=== PATIENT | female | born 1995 | race American Indian/Alaskan Native ===

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

== ENCOUNTER 2020-05-21 16:23 | Emergency (ER) | payer OTHER ==
[2020-05-21 16:49] VITALS: BP 140/51
--- NOTE | 2020-05-21 18:12 | Emergency Department Report ---
- General Chief complaint: Skin/Abscess/Foreign Body Stated complaint: BOIL ON RIGHT LEG Time Seen by Provider: 05/21/20 18:08 Source: patient Mode of arrival: Ambulatory Limitations: No Limitations - History of Present Illness Initial comments: Patient is a 25-year-old female who presents emergency room with complaints of a possible boil to the right lower leg that began 5 days ago. She denies any abrasion, hitting her leg against anything, any bites, any recent shaving. She denies any drainage, fever, vomiting, diarrhea. Patient denies any past medical history. No allergies to medications. Last menstrual cycle April 30, 2020. She denies any possibility of . - Related Data Previous Rx's Medication Instructions Recorded Last Taken Type Diphenhydramine HCl [Benadryl 25 mg PO QID PRN #40 tablet 07/23/15 Unknown Rx Allergy TAB] Famotidine [Pepcid] 10 mg PO BID #30 tablet 07/23/15 Unknown Rx Doxycycline Monohydrate 100 mg PO BID #20 capsule 08/04/16 Unknown Rx [Doxycycline Monohydrate CAP] Fluconazole (Nf) [Diflucan TAB] 150 mg PO ONCE #1 tablet 08/04/16 Unknown Rx metroNIDAZOLE [Flagyl] 2 g PO ONCE #4 tablet 09/08/16 Unknown Rx metroNIDAZOLE [Flagyl TAB] 500 mg PO Q12HR #14 tab 09/17/16 Unknown Rx Ciprofloxacin HCl [Ciprofloxacin 500 mg PO Q12HR #10 tab 12/16/16 Unknown Rx TAB] Sulfamethoxazole/Trimethoprim 1 each PO BID 7 Days #14 tablet 05/21/20 Unknown Rx [Bactrim DS TAB] Allergies Allergy/AdvReac Type Severity Reaction Status Date / Time No Known Allergies Allergy Verified 05/21/20 16:46 Abscess Boil HPI - HPI Chief Complaint: Skin/Abscess/Foreign Body Stated Complaint: BOIL ON RIGHT LEG Time Seen by Provider: 05/21/20 18:08 Home Medications: Previous Rx's Medication Instructions Recorded Last Taken Type Diphenhydramine HCl [Benadryl 25 mg PO QID PRN #40 tablet 07/23/15 Unknown Rx Allergy TAB] Famotidine [Pepcid] 10 mg PO BID #30 tablet 07/23/15 Unknown Rx Doxycycline Monohydrate 100 mg PO BID #20 capsule 08/04/16 Unknown Rx [Doxycycline Monohydrate CAP] Fluconazole (Nf) [Diflucan TAB] 150 mg PO ONCE #1 tablet 08/04/16 Unknown Rx metroNIDAZOLE [Flagyl] 2 g PO ONCE #4 tablet 09/08/16 Unknown Rx metroNIDAZOLE [Flagyl TAB] 500 mg PO Q12HR #14 tab 09/17/16 Unknown Rx Ciprofloxacin HCl [Ciprofloxacin 500 mg PO Q12HR #10 tab 12/16/16 Unknown Rx TAB] Sulfamethoxazole/Trimethoprim 1 each PO BID 7 Days #14 tablet 05/21/20 Unknown Rx [Bactrim DS TAB] Allergies/Adverse Reactions: Allergies Allergy/AdvReac Type Severity Reaction Status Date / Time No Known Allergies Allergy Verified 05/21/20 16:46 ED Review of Systems ROS: Stated complaint: BOIL ON RIGHT LEG Other details as noted in HPI Comment: All other systems reviewed and negative ED Past Medical Hx - Past Medical History Previous Medical History?: Yes Additional medical history: Eczema. Contact dermatitis with certain makeup - Surgical History Past Surgical History?: No - Social History Smoking Status: Never Smoker Substance Use Type: None - Medications Home Medications: Home Medications Medication Instructions Recorded Confirmed Last Taken Type Diphenhydramine HCl [Benadryl 25 mg PO QID PRN #40 tablet 07/23/15 Unknown Rx Allergy TAB] Famotidine [Pepcid] 10 mg PO BID #30 tablet 07/23/15 Unknown Rx Doxycycline Monohydrate 100 mg PO BID #20 capsule 08/04/16 Unknown Rx [Doxycycline Monohydrate CAP] Fluconazole (Nf) [Diflucan TAB] 150 mg PO ONCE #1 tablet 08/04/16 Unknown Rx metroNIDAZOLE [Flagyl] 2 g PO ONCE #4 tablet 09/08/16 Unknown Rx metroNIDAZOLE [Flagyl TAB] 500 mg PO Q12HR #14 tab 09/17/16 Unknown Rx Ciprofloxacin HCl [Ciprofloxacin 500 mg PO Q12HR #10 tab 12/16/16 Unknown Rx TAB] Sulfamethoxazole/Trimethoprim 1 each PO BID 7 Days #14 tablet 05/21/20 Unknown Rx [Bactrim DS TAB] ED Physical Exam - General Limitations: No Limitations General appearance: alert, in no apparent distress - Head Head exam: Present: atraumatic, normocephalic - Eye Eye exam: Present: normal appearance - ENT ENT exam: Present: mucous membranes moist - Respiratory Respiratory exam: Absent: respiratory distress, accessory muscle use - Neurological Exam Neurological exam: Present: alert, oriented X3 - Psychiatric Psychiatric exam: Present: normal affect, normal mood - Skin Skin exam: Present: warm, dry, other (2 cm area of induration present to the right medial leg just superior to the medial malleolus, no drainage, no fluctuance, no necrosis, no abrasion, neurovascularly intact) ED Course Vital Signs 05/21/20 16:47 Temperature 98.4 F Pulse Rate 102 H Respiratory 17 Rate Blood Pressure 140/51 O2 Sat by Pulse 98 Oximetry ED Medical Decision Making - Medical Decision Making Patient is a 25-year-old female who presents emergency room with complaints of a possible boil to the right lower leg that began 5 days ago. She denies any abrasion, hitting her leg against anything, any bites, any recent shaving. She denies any drainage, fever, vomiting, diarrhea. Patient denies any past medical history. No allergies to medications. Last menstrual cycle April 30, 2020. She denies any possibility of . VSS. on exam:2 cm area of induration present to the right medial leg just superior to the medial malleolus, no drainage, no fluctuance, no necrosis, no abrasion, neurovascularly intact. Examination appears consistent with cellulitis, no drainable abscess at this time. Patient given prescription for Bactrim. Advised patient that she would need to have the area reexamined within the next 2 to 3 days, discussed very strict return precautions with patient. Advised patient Please take medication as prescribed to completion. Please take medication with food. Increase your water intake. May take Tylenol or ibuprofen as needed for discomfort. Follow- up with your primary care doctor in the next 3 days for reexamination. Return to emergency room for any new or worsening symptoms. Critical care attestation.: If time is entered above; I have spent that time in minutes in the direct care of this critically ill patient, excluding procedure time. ED Disposition Clinical Impression: Cellulitis of right leg Disposition: DC-01 TO HOME OR SELFCARE Is pt being admited?: No Does the pt Need Aspirin: No Condition: Stable Instructions: Cellulitis, Adult Additional Instructions: Please take medication as prescribed to completion. Please take medication with food. Increase your water intake. May take Tylenol or ibuprofen as needed for discomfort. Follow-up with your primary care doctor in the next 3 days for reexamination. Return to emergency room for any new or worsening symptoms. Prescriptions: Sulfamethoxazole/Trimethoprim [Bactrim DS TAB] 1 each PO BID 7 Days #14 tablet Referrals: WES PAYNE MD [Staff Physician] - 2-3 Days [facility] [Provider Group] - 2-3 Days [facility], [LAB/CONTRACT] - 2-3 Days Time of Disposition: 18:10 Print Language: ARMENIAN
== END 2020-05-21 18:32 | disposition home or self-care (01) ==
LOC: ED 16:23
DX: L03.115 Cellulitis of right lower limb (principal); Z79.2 Long term (current) use of antibiotics; Z79.899 Other long term (current) drug therapy
CPT/HCPCS: 99282

== ENCOUNTER 2020-05-31 09:00 | Emergency (ER) | payer OTHER ==
[2020-05-31 09:14] VITALS: BP 108/57
--- NOTE | 2020-05-31 12:24 | Emergency Department Report ---
- General Chief complaint: Skin Rash Stated complaint: ALLERGIC RERACTION Time Seen by Provider: 05/31/20 12:16 Source: patient Mode of arrival: Ambulatory Limitations: No Limitations - History of Present Illness Initial comments: Patient is a 25-year-old female presents emergency room complaints of a diffuse rash that began yesterday. She states that she completed a course of Bactrim for a boil. She states that she started the medication on 05/21/2020. She states that the infection completely resolved. She states that yesterday she just noticed a rash. She states that is the only new thing that she can think of. She denies any new soaps, detergents, lotions. She denies any difficulty swallowing, difficulty breathing, facial swelling, sores in the mouth, nausea, vomiting, diarrhea, fever, urinary symptoms, dark urine. She denies any past medical history. No allergies to medications. Last mental cycle 05/30/2020. - Related Data Previous Rx's Medication Instructions Recorded Last Taken Type Diphenhydramine HCl [Benadryl 25 mg PO QID PRN #40 tablet 07/23/15 Unknown Rx Allergy TAB] Famotidine [Pepcid] 10 mg PO BID #30 tablet 07/23/15 Unknown Rx Doxycycline Monohydrate 100 mg PO BID #20 capsule 08/04/16 Unknown Rx [Doxycycline Monohydrate CAP] Fluconazole (Nf) [Diflucan TAB] 150 mg PO ONCE #1 tablet 08/04/16 Unknown Rx metroNIDAZOLE [Flagyl] 2 g PO ONCE #4 tablet 09/08/16 Unknown Rx metroNIDAZOLE [Flagyl TAB] 500 mg PO Q12HR #14 tab 09/17/16 Unknown Rx Ciprofloxacin HCl [Ciprofloxacin 500 mg PO Q12HR #10 tab 12/16/16 Unknown Rx TAB] Sulfamethoxazole/Trimethoprim 1 each PO BID 7 Days #14 tablet 05/21/20 Unknown Rx [Bactrim DS TAB] Famotidine [Pepcid] 40 mg PO QHS #14 tablet 05/31/20 Unknown Rx Hydrocortisone 0.5% (Nf) 1 applicatio TP TID #1 tube 05/31/20 Unknown Rx [Hydrocortisone 0.5% OINT] Prednisone [predniSONE 10 mg 10 mg PO .TAPER #1 tab.ds.pk 05/31/20 Unknown Rx (6-Day Pack, 21 Tabs)] diphenhydrAMINE [Benadryl CAP] 25 mg PO Q8HR PRN #20 capsule 05/31/20 Unknown Rx Allergies Allergy/AdvReac Type Severity Reaction Status Date / Time No Known Allergies Allergy Verified 05/21/20 16:46 Abscess Boil HPI - HPI Chief Complaint: Skin Rash Stated Complaint: ALLERGIC RERACTION Time Seen by Provider: 05/31/20 12:16 Home Medications: Previous Rx's Medication Instructions Recorded Last Taken Type Diphenhydramine HCl [Benadryl 25 mg PO QID PRN #40 tablet 07/23/15 Unknown Rx Allergy TAB] Famotidine [Pepcid] 10 mg PO BID #30 tablet 07/23/15 Unknown Rx Doxycycline Monohydrate 100 mg PO BID #20 capsule 08/04/16 Unknown Rx [Doxycycline Monohydrate CAP] Fluconazole (Nf) [Diflucan TAB] 150 mg PO ONCE #1 tablet 08/04/16 Unknown Rx metroNIDAZOLE [Flagyl] 2 g PO ONCE #4 tablet 09/08/16 Unknown Rx metroNIDAZOLE [Flagyl TAB] 500 mg PO Q12HR #14 tab 09/17/16 Unknown Rx Ciprofloxacin HCl [Ciprofloxacin 500 mg PO Q12HR #10 tab 12/16/16 Unknown Rx TAB] Sulfamethoxazole/Trimethoprim 1 each PO BID 7 Days #14 tablet 05/21/20 Unknown Rx [Bactrim DS TAB] Famotidine [Pepcid] 40 mg PO QHS #14 tablet 05/31/20 Unknown Rx Hydrocortisone 0.5% (Nf) 1 applicatio TP TID #1 tube 05/31/20 Unknown Rx [Hydrocortisone 0.5% OINT] Prednisone [predniSONE 10 mg 10 mg PO .TAPER #1 tab.ds.pk 05/31/20 Unknown Rx (6-Day Pack, 21 Tabs)] diphenhydrAMINE [Benadryl CAP] 25 mg PO Q8HR PRN #20 capsule 05/31/20 Unknown Rx Allergies/Adverse Reactions: Allergies Allergy/AdvReac Type Severity Reaction Status Date / Time No Known Allergies Allergy Verified 05/21/20 16:46 ED Review of Systems ROS: Stated complaint: ALLERGIC RERACTION Other details as noted in HPI Comment: All other systems reviewed and negative ED Past Medical Hx - Past Medical History Previous Medical History?: Yes Additional medical history: Eczema. Contact dermatitis with certain makeup - Social History Smoking Status: Never Smoker Substance Use Type: None - Medications Home Medications: Home Medications Medication Instructions Recorded Confirmed Last Taken Type Diphenhydramine HCl [Benadryl 25 mg PO QID PRN #40 tablet 07/23/15 Unknown Rx Allergy TAB] Famotidine [Pepcid] 10 mg PO BID #30 tablet 07/23/15 Unknown Rx Doxycycline Monohydrate 100 mg PO BID #20 capsule 08/04/16 Unknown Rx [Doxycycline Monohydrate CAP] Fluconazole (Nf) [Diflucan TAB] 150 mg PO ONCE #1 tablet 08/04/16 Unknown Rx metroNIDAZOLE [Flagyl] 2 g PO ONCE #4 tablet 09/08/16 Unknown Rx metroNIDAZOLE [Flagyl TAB] 500 mg PO Q12HR #14 tab 09/17/16 Unknown Rx Ciprofloxacin HCl [Ciprofloxacin 500 mg PO Q12HR #10 tab 12/16/16 Unknown Rx TAB] Sulfamethoxazole/Trimethoprim 1 each PO BID 7 Days #14 tablet 05/21/20 Unknown Rx [Bactrim DS TAB] Famotidine [Pepcid] 40 mg PO QHS #14 tablet 05/31/20 Unknown Rx Hydrocortisone 0.5% (Nf) 1 applicatio TP TID #1 tube 05/31/20 Unknown Rx [Hydrocortisone 0.5% OINT] Prednisone [predniSONE 10 mg 10 mg PO .TAPER #1 tab.ds.pk 05/31/20 Unknown Rx (6-Day Pack, 21 Tabs)] diphenhydrAMINE [Benadryl CAP] 25 mg PO Q8HR PRN #20 capsule 05/31/20 Unknown Rx ED Physical Exam - General Limitations: No Limitations General appearance: alert, in no apparent distress - Head Head exam: Present: atraumatic, normocephalic - Eye Eye exam: Present: normal appearance - ENT ENT exam: Present: normal orophraynx, mucous membranes moist, other (no angioedema) - Respiratory Respiratory exam: Absent: respiratory distress, accessory muscle use - Neurological Exam Neurological exam: Present: alert, oriented X3 - Psychiatric Psychiatric exam: Present: normal affect, normal mood - Skin Skin exam: Present: warm, dry, rash (erythematous papules present to the BLE, BUE, back, no skin denuding, no blistering, no sores in the mouth) ED Course Vital Signs 05/31/20 09:13 Temperature 98 F Pulse Rate 109 H Respiratory 16 Rate Blood Pressure 108/57 [Right] O2 Sat by Pulse 100 Oximetry ED Medical Decision Making - Medical Decision Making Patient is a 25-year-old female presents emergency room complaints of a diffuse rash that began yesterday. She states that she completed a course of Bactrim for a boil. She states that she started the medication on 05/21/2020. She states that the infection completely resolved. She states that yesterday she just noticed a rash. She states that is the only new thing that she can think of. She denies any new soaps, detergents, lotions. She denies any difficulty swallowing, difficulty breathing, facial swelling, sores in the mouth, nausea, vomiting, diarrhea, fever, urinary symptoms, dark urine. She denies any past medical history. No allergies to medications. Last mental cycle 05/30/2020. VSS. on exam:erythematous papules present to the BLE, BUE, back, no skin denuding, no blistering, no sores in the mouth. No signs of angioedema or anaphylaxis. She has no clinical signs of Mena-Faisal syndrome or TEN. Patient has already completed the Bactrim. Papules appear most consistent with a dermatitis. Patient given prescription for hydrocortisone ointment, prednisone, Benadryl, Pepcid. Advised patient Please use medication as presc ribed. Please keep your appointment with your primary care doctor for reexamination. Return to emergency room immediately for any new or worsening symptoms include but not limited to worsening rash, facial swelling, difficulty breathing, difficulty swallowing, sores in the mouth, etc. Critical care attestation.: If time is entered above; I have spent that time in minutes in the direct care of this critically ill patient, excluding procedure time. ED Disposition Clinical Impression: Rash Disposition: DC-01 TO HOME OR SELFCARE Is pt being admited?: No Does the pt Need Aspirin: No Condition: Stable Instructions: Hives, [id number] Additional Instructions: Please use medication as prescribed. Please keep your appointment with your primary care doctor for reexamination. Return to emergency room immediately for any new or worsening symptoms include but not limited to worsening rash, facial swelling, difficulty breathing, difficulty swallowing, sores in the mouth, etc. Prescriptions: Famotidine [Pepcid] 40 mg PO QHS #14 tablet diphenhydrAMINE [Benadryl CAP] 25 mg PO Q8HR PRN #20 capsule PRN Reason: itching Hydrocortisone 0.5% (Nf) [Hydrocortisone 0.5% OINT] 1 applicatio TP TID #1 tube Prednisone [predniSONE 10 mg (6-Day Pack, 21 Tabs)] 10 mg PO .TAPER #1 tab.ds.pk Referrals: your, primary care doctor [Other] - 3-5 Days Time of Disposition: 12:20 Print Language: BURKINAN
== END 2020-05-31 13:41 | disposition home or self-care (01) ==
LOC: ED 09:00
DX: R21 Rash and other nonspecific skin eruption (principal); Z79.899 Other long term (current) drug therapy
CPT/HCPCS: 99281

== ENCOUNTER 2020-08-14 21:45 | Emergency (ER) | payer OTHER ==
[2020-08-14 21:52] VITALS: BP 145/86
--- NOTE | 2020-08-14 22:32 | Emergency Department Report ---
ED General Adult HPI - General Chief complaint: Dyspnea/Respdistress Stated complaint: SOB PUI?: No Time Seen by Provider: 08/14/20 22:27 Source: patient Mode of arrival: Ambulatory Limitations: No Limitations - History of Present Illness Initial comments: 25-year-old -[place] female presents to the emergency room reporting she has been feeling jittery has had shortness of breath for about 4 days. Patient also complains of burning to her perineal area. Patient admits that she has a history of herpes and feels she may have an outbreak. Patient denies any dysuria no vaginal discharge no vaginal bleeding. Patient reports her last menstrual period was 08/05/2020. She reports she is currently on amoxicillin and ibuprofen for dental abscess by her dentist. She has never had a Covid test. She denies any SI or HI. She does admit to being depressed and having difficulty sleeping. She states that she lives with her mom and does not always feel safe. She is followed by [facility] and was last seen last month. - Related Data Previous Rx's Medication Instructions Recorded Last Taken Type Diphenhydramine HCl [Benadryl 25 mg PO QID PRN #40 tablet 07/23/15 Unknown Rx Allergy TAB] Famotidine [Pepcid] 10 mg PO BID #30 tablet 07/23/15 Unknown Rx Doxycycline Monohydrate 100 mg PO BID #20 capsule 08/04/16 Unknown Rx [Doxycycline Monohydrate CAP] Fluconazole (Nf) [Diflucan TAB] 150 mg PO ONCE #1 tablet 08/04/16 Unknown Rx metroNIDAZOLE [Flagyl] 2 g PO ONCE #4 tablet 09/08/16 Unknown Rx metroNIDAZOLE [Flagyl TAB] 500 mg PO Q12HR #14 tab 09/17/16 Unknown Rx Ciprofloxacin HCl [Ciprofloxacin 500 mg PO Q12HR #10 tab 12/16/16 Unknown Rx TAB] Sulfamethoxazole/Trimethoprim 1 each PO BID 7 Days #14 tablet 05/21/20 Unknown Rx [Bactrim DS TAB] Famotidine [Pepcid] 40 mg PO QHS #14 tablet 05/31/20 Unknown Rx Hydrocortisone 0.5% (Nf) 1 applicatio TP TID #1 tube 05/31/20 Unknown Rx [Hydrocortisone 0.5% OINT] Prednisone [predniSONE 10 mg 10 mg PO .TAPER #1 tab.ds.pk 05/31/20 Unknown Rx (6-Day Pack, 21 Tabs)] diphenhydrAMINE [Benadryl CAP] 25 mg PO Q8HR PRN #20 capsule 05/31/20 Unknown Rx Valacyclovir HCl [Valtrex] 1,000 mg PO QDAY 5 Days #5 tablet 08/14/20 Unknown Rx Allergies Allergy/AdvReac Type Severity Reaction Status Date / Time No Known Allergies Allergy Verified 05/21/20 16:46 ED Review of Systems ROS: Stated complaint: SOB Other details as noted in HPI Comment: All other systems reviewed and negative ED Past Medical Hx - Past Medical History Previous Medical History?: Yes Additional medical history: Eczema. Contact dermatitis with certain makeup - Surgical History Past Surgical History?: No - Social History Smoking Status: Never Smoker Substance Use Type: None - Medications Home Medications: Home Medications Medication Instructions Recorded Confirmed Last Taken Type Diphenhydramine HCl [Benadryl 25 mg PO QID PRN #40 tablet 07/23/15 Unknown Rx Allergy TAB] Famotidine [Pepcid] 10 mg PO BID #30 tablet 07/23/15 Unknown Rx Doxycycline Monohydrate 100 mg PO BID #20 capsule 08/04/16 Unknown Rx [Doxycycline Monohydrate CAP] Fluconazole (Nf) [Diflucan TAB] 150 mg PO ONCE #1 tablet 08/04/16 Unknown Rx metroNIDAZOLE [Flagyl] 2 g PO ONCE #4 tablet 09/08/16 Unknown Rx metroNIDAZOLE [Flagyl TAB] 500 mg PO Q12HR #14 tab 09/17/16 Unknown Rx Ciprofloxacin HCl [Ciprofloxacin 500 mg PO Q12HR #10 tab 12/16/16 Unknown Rx TAB] Sulfamethoxazole/Trimethoprim 1 each PO BID 7 Days #14 tablet 05/21/20 Unknown Rx [Bactrim DS TAB] Famotidine [Pepcid] 40 mg PO QHS #14 tablet 05/31/20 Unknown Rx Hydrocortisone 0.5% (Nf) 1 applicatio TP TID #1 tube 05/31/20 Unknown Rx [Hydrocortisone 0.5% OINT] Prednisone [predniSONE 10 mg 10 mg PO .TAPER #1 tab.ds.pk 05/31/20 Unknown Rx (6-Day Pack, 21 Tabs)] diphenhydrAMINE [Benadryl CAP] 25 mg PO Q8HR PRN #20 capsule 05/31/20 Unknown Rx Valacyclovir HCl [Valtrex] 1,000 mg PO QDAY 5 Days #5 tablet 08/14/20 Unknown Rx ED Physical Exam - General Limitations: No Limitations General appearance: alert, in no apparent distress - Head Head exam: Present: atraumatic, normocephalic - Eye Eye exam: Present: normal appearance - ENT ENT exam: Present: mucous membranes moist - Neck Neck exam: Present: normal inspection - Respiratory Respiratory exam: Present: normal lung sounds bilaterally. Absent: accessory muscle use - Cardiovascular Cardiovascular Exam: Present: regular rate - GI/Abdominal GI/Abdominal exam: Present: soft, normal bowel sounds. Absent: distended, tenderness - External exam: Present: lesions Speculum exam: Present: vaginal discharge - Extremities Exam Extremities exam: Present: normal inspection, full ROM - Back Exam Back exam: Present: normal inspection - Neurological Exam Neurological exam: Present: alert, oriented X3, normal gait - Psychiatric Psychiatric exam: Present: normal affect, normal mood - Skin Skin exam: Present: warm, dry, intact, normal color. Absent: rash ED Course Vital Signs 08/14/20 21:50 Temperature 98.6 F Pulse Rate 119 H Respiratory 18 Rate Blood Pressure 145/86 O2 Sat by Pulse 100 Oximetry ED Medical Decision Making - Medical Decision Making 25-year-old -[place] female presents to the emergency room reporting she has been feeling jittery has had shortness of breath for about 4 days. Patient also complains of burning to her perineal area. Patient admits that she has a history of herpes and feels she may have an outbreak. Patient denies any dysuria no vaginal discharge no vaginal bleeding. Patient reports her last menstrual period was 08/05/2020. She reports she is currently on amoxicillin and ibuprofen for dental abscess by her dentist. She has never had a Covid test. She denies any SI or HI. She does admit to being depressed and having difficulty sleeping. She states that she lives with her mom and does not always feel safe. She is followed by [facility] and was last seen last month. Critical care attestation.: If time is entered above; I have spent that time in minutes in the direct care of this critically ill patient, excluding procedure time. ED Disposition Clinical Impression: Anxious depression Herpes genitalia Qualifiers: Herpes simplex infection site: vulvovaginitis Qualified Code(s): A60.04 - Herpesviral vulvovaginitis Disposition: DC- TO HOME OR SELFCARE Is pt being admited?: No Does the pt Need Aspirin: No Condition: Stable Instructions: Managing Anxiety, Adult Additional Instructions: Complete antiviral medication as prescribed. Very important for you to follow- up at [facility]. Also follow-up with your primary care prov ider. Prescriptions: Valacyclovir HCl [Valtrex] 1,000 mg PO QDAY 5 Days #5 tablet Referrals: KRISTYN YANCEY MD [Primary Care Provider] - 3-5 Days [facility] [Outside] - 3-5 Days
== END 2020-08-14 23:06 | disposition home or self-care (01) ==
LOC: ED 21:45
DX: A60.04 Herpesviral vulvovaginitis (principal); F41.8 Other specified anxiety disorders; Z79.899 Other long term (current) drug therapy
CPT/HCPCS: 99282

== ENCOUNTER 2020-08-22 01:19 | Emergency (ER) | payer OTHER ==
--- NOTE | 2020-08-22 02:44 | Emergency Department Report ---
ED General Adult HPI - General Stated complaint: THROAT PAIN Time Seen by Provider: 08/22/20 02:39 - History of Present Illness Initial comments: 25-year-old F [place] female that emerge department complaining of a myriad and tangential amount of issues. 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 She also reports having possibly some dental pain which may be contributing to her throat and thinks that it may be tied into her work. The patient states that she feels she knows was going on with her of her body she just wants us to give her a note for what she thinks is going on does not feel that we need to examine her you should just be able to give her the paperwork that she needs so that she can not do certain things at work. - Related Data Previous Rx's Medication Instructions Recorded Last Taken Type Diphenhydramine HCl [Benadryl 25 mg PO QID PRN #40 tablet 07/23/15 Unknown Rx Allergy TAB] Famotidine [Pepcid] 10 mg PO BID #30 tablet 07/23/15 Unknown Rx Doxycycline Monohydrate 100 mg PO BID #20 capsule 08/04/16 Unknown Rx [Doxycycline Monohydrate CAP] Fluconazole (Nf) [Diflucan TAB] 150 mg PO ONCE #1 tablet 08/04/16 Unknown Rx metroNIDAZOLE [Flagyl] 2 g PO ONCE #4 tablet 09/08/16 Unknown Rx metroNIDAZOLE [Flagyl TAB] 500 mg PO Q12HR #14 tab 09/17/16 Unknown Rx Ciprofloxacin HCl [Ciprofloxacin 500 mg PO Q12HR #10 tab 12/16/16 Unknown Rx TAB] Sulfamethoxazole/Trimethoprim 1 each PO BID 7 Days #14 tablet 05/21/20 Unknown Rx [Bactrim DS TAB] Famotidine [Pepcid] 40 mg PO QHS #14 tablet 05/31/20 Unknown Rx Hydrocortisone 0.5% (Nf) 1 applicatio TP TID #1 tube 05/31/20 Unknown Rx [Hydrocortisone 0.5% OINT] Prednisone [predniSONE 10 mg 10 mg PO .TAPER #1 tab.ds.pk 05/31/20 Unknown Rx (6-Day Pack, 21 Tabs)] diphenhydrAMINE [Benadryl CAP] 25 mg PO Q8HR PRN #20 capsule 05/31/20 Unknown Rx Valacyclovir HCl [Valtrex] 1,000 mg PO QDAY 5 Days #5 tablet 08/14/20 Unknown Rx Allergies Allergy/AdvReac Type Severity Reaction Status Date / Time No Known Allergies Allergy Verified 05/21/20 16:46 ED Review of Systems ROS: Stated complaint: THROAT PAIN Other details as noted in HPI Comment: Unobtainable due to pts medical conditions (Lack of patient cooperation) ED Past Medical Hx - Past Medical History Additional medical history: Eczema. Contact dermatitis with certain makeup - Social History Smoking Status: Never Smoker Substance Use Type: None - Medications Home Medications: Home Medications Medication Instructions Recorded Confirmed Last Taken Type Diphenhydramine HCl [Benadryl 25 mg PO QID PRN #40 tablet 07/23/15 Unknown Rx Allergy TAB] Famotidine [Pepcid] 10 mg PO BID #30 tablet 07/23/15 Unknown Rx Doxycycline Monohydrate 100 mg PO BID #20 capsule 08/04/16 Unknown Rx [Doxycycline Monohydrate CAP] Fluconazole (Nf) [Diflucan TAB] 150 mg PO ONCE #1 tablet 08/04/16 Unknown Rx metroNIDAZOLE [Flagyl] 2 g PO ONCE #4 tablet 09/08/16 Unknown Rx metroNIDAZOLE [Flagyl TAB] 500 mg PO Q12HR #14 tab 09/17/16 Unknown Rx Ciprofloxacin HCl [Ciprofloxacin 500 mg PO Q12HR #10 tab 12/16/16 Unknown Rx TAB] Sulfamethoxazole/Trimethoprim 1 each PO BID 7 Days #14 tablet 05/21/20 Unknown Rx [Bactrim DS TAB] Famotidine [Pepcid] 40 mg PO QHS #14 tablet 05/31/20 Unknown Rx Hydrocortisone 0.5% (Nf) 1 applicatio TP TID #1 tube 05/31/20 Unknown Rx [Hydrocortisone 0.5% OINT] Prednisone [predniSONE 10 mg 10 mg PO .TAPER #1 tab.ds.pk 05/31/20 Unknown Rx (6-Day Pack, 21 Tabs)] diphenhydrAMINE [Benadryl CAP] 25 mg PO Q8HR PRN #20 capsule 05/31/20 Unknown Rx Valacyclovir HCl [Valtrex] 1,000 mg PO QDAY 5 Days #5 tablet 02/13/21 Unknown Rx ED Physical Exam - General General appearance: in no apparent distress - Head Head exam: Present: atraumatic - Eye Eye exam: Present: normal appearance, PERRL - ENT ENT exam: Present: other (The patient refused to have this portion of her body exam) - Neck Neck exam: Present: other (Patient refused to have this portion of her body exam) - Respiratory Respiratory exam: Present: normal lung sounds bilaterally - Cardiovascular Cardiovascular Exam: Present: regular rate - GI/Abdominal GI/Abdominal exam: Present: other (Patient refused) - Neurological Exam Neurological exam: Present: alert, oriented X3, CN II-XII intact, normal gait - Psychiatric Psychiatric exam: Absent: depressed, agitated, anxious, suicidal ideation ED Medical Decision Making - Medical Decision Making 25-year-old F [place] female presents to the emergency department for unknown issue does not wish to be examined but does request to have a note for work but will not articulate what is the need for the note and what the no content should be. States she wants to be of a few days for reasons that are unknown. Critical care attestation.: If time is entered above; I have spent that time in minutes in the direct care of this critically ill patient, excluding procedure time. ED Disposition Clinical Impression: Throat pain Disposition: Z MED SCREENING EXAM-LEFT Is pt being admited?: No Does the pt Need Aspirin: No Condition: Stable
[2020-08-22 02:54] VITALS: BP 110/78
== END 2020-08-22 02:55 | disposition left against medical advice (07) ==
LOC: ED 01:19
DX: R07.0 Pain in throat (principal); Z53.21 Procedure and treatment not carried out due to patient leaving prior to being seen by health care provider